=== PATIENT | female | born 1955 | race Caucasian/White ===

== ENCOUNTER 2025-05-18 14:38 | Outpatient (AMB) | payer MEDICARE, OTHER, SELFPAY ==
--- NOTE | 2025-05-18 14:41 | MHC.OFFVIS ---
Intake Visit Reasons: ULAR NEUROPATHY Allergies amoxicillin Allergy (Unknown, Verified 05/18/25 14:46) Unknown Medication List - Last Reconciled 05/18/25 by Donna Paige CNP apixaban (Eliquis) 5 mg PO BID cholecalciferol (vitamin D3) (Vitamin D3) 100 mcg PO DAILY diltiazem HCl CD 180 mg PO DAILY docusate sodium 100 mg PO BID estradiol 0.01%(0.1mg/gram) 1 g vaginal 3XW furosemide 20 mg PO DAILY gabapentin 800 mg PO TID magnesium oxide 400 mg PO DAILY metformin 500 mg PO BID mirabegron ER (Myrbetriq) 25 mg PO QPM montelukast 10 mg PO BEDTIME oxycodone ER (OxyContin) 20 mg PO Q12H prazosin 5 mg PO BEDTIME semaglutide (Ozempic) 2 mg subcut QWEEK sertraline 200 mg PO BEDTIME trazodone 50 mg PO BEDTIME trospium ER 60 mg PO DAILY HPI Comments Details: She was having constant pain to left 5th finger and first two fingers on right. Pain was burning or throbbing-type, and was worse if she was using her hands. She was still having painful sensitivity along left ulnar border of palm and 5th finger. She was taking gabapentin 800mg three times a day, but medication was not helping anymore. She was using wrist splint for right hand. Around 12/2023, she started with numbness in the fourth and fifth fingers, especially on the left hand with pain and some milder symptoms in the right side. She had been sleeping with her arm was under her and she now wears splints to avoid that. She has chronic pain because of ankle and knee pain. Also had right thumb pain in joint. Burning of palm is gone. [facility] Medical History (Updated 05/18/25 @ 15:07 by Donna Paige CNP) Right carpal tunnel syndrome Review of Systems Const Denies chills, Denies daytime sleepiness, Denies difficulty sleeping, Denies fatigue, Denies fever(s), Denies frequent falls, Denies headache(s), Denies increased appetite, Denies poor appetite, Denies snoring, Denies weakness, Denies weight gain and Denies weight loss Eyes Denies loss of vision ENT Denies vertigo, Denies dizziness, Denies headache(s) and Denies neck pain Card Denies chest pain at rest, Denies chest pain with activity, Denies syncope, Denies leg edema, Denies palpitations, Denies dyspnea and Denies dyspnea on exertion Resp Denies cough, Denies dyspnea, Denies dyspnea on exertion and Denies snoring GI Denies abdominal pain, Denies constipation, Denies heartburn, Denies diarrhea and Denies nausea Denies urinary frequency, Denies urinary incontinence and Denies urinary urgency Musc Denies abnormal gait, Denies back pain, Denies myalgias, Denies arthralgias, Denies neck pain, Denies numbness and Denies tingling Neuro Denies abnormal gait, Denies vertigo, Denies dizziness, Denies syncope, Denies frequent falls, Denies headache(s), Denies lack of coordination, Denies loss of vision, Denies memory loss, Denies numbness, Denies Other visual disturbances, Denies restless legs, Denies seizure-like activity, Denies tingling, Denies paresthesias, Denies tremor(s) and Denies weakness Psych Denies anxiety, Denies depression, Denies auditory hallucinations, Denies memory loss and Denies visual hallucinations Endo Denies fatigue and Denies palpitations Physical Exam Const Other: General Appearance:? normal, in no acute distress. Heart:? S1, S2 normal, no murmurs. Lungs:? clear anteriorly and posteriorly. Musculoskeletal:? normal. Extremities:? no edema. Psych:? alert, oriented, cognitive function intact, cooperative with exam. Neuro Other: Abnormal Neurological Findings:?Atrophy and weakness of ulnar innervated intrinsic hand muscles on the left 4+/5. Decreased sensation in ulnar nerve distribution on the left. In wheelchair. Mental Status: alert and oriented X 3. Normal attention, orientation, memory, and affect. Cranial Nerves: Pupils are equal, round, and reactive to light. External ocular muscles are intact. Visual maria are full, no ptosis. Face is symmetrical, no facial weakness or droop. Facial sensations are normal. Tongue protrudes in midline. Palate elevates symmetrically. Shoulder shrugging is normal Motor Examination: As above, otherwise normal muscle tone, bulk and strength. No atrophy or fasciculations. No drift of the extended upper extremities. DTR 2+. Plantars are flexor. Sensory Exam: As above, otherwise normal light touch, temperature, pinprick, vibration, and joint-position sensations. Rhomberg sign is absent. Coordination: No ataxia. No titubation. Ocqcaj-na-cean, [id number] test, and rapid alternating movements were normal. Gait Exam: Wheelchair. Cerebellar Signs: [id number] is okay. Extrapyramidal System: No tremor, rigidity with normal facial expressions. No bradykinesia. No bradyphrenia. Normal arm swing and posture. No propulsion or retropulsion. Speech: Normal. No dysphasia or dysarthria. Results Reviewed Results Reviewed: 08/11/24 NCV/EMG UE Early Carpal tunnel syndrome on the left and mild CTS on the right. Moderately severe compression palsy in the left ulnar nerve at the elbow. EMG in the left C5-T1 innervated muscles is consistent with moderate denervation in ulnar innervated muscle on the left. Assessment & Plan Assessment & Plan (1) Ulnar neuropathy: Code(s): G56.20 - Lesion of ulnar nerve, unspecified upper limb Category: Medical Qualifiers: Laterality: left Qualified Code(s): G56.22 - Lesion of ulnar nerve, left upper limb Plan: Gabapentin 800mg 1 tablet three times a day was not helping with pain, stop medication. Start pregabalin 150mg 1 tablet twice a day, use/side effects reviewed. (2) Carpal tunnel syndrome: Code(s): G56.00 - Carpal tunnel syndrome, unspecified upper limb Category: Medical Qualifiers: Laterality: bilateral Qualified Code(s): G56.03 - Carpal tunnel syndrome, bilateral upper limbs Plan Meds tried: gabapentin Medications: New pregabalin 150 mg PO BID 60 caps 1RF 30 days Coding Level of Care Code Est Pt Level 4 (34313) Diagnoses Ulnar neuropathy of left upper extremity G56.22 Laterality: left Bilateral carpal tunnel syndrome G56.03 Laterality: bilateral
--- OUTSIDE RECORDS SUMMARY | 2025-05-18 18:20 | XMS_ITS ---
Author Organization Patient Business Ser [facility] Address [address] [place] [address] Care Team Providers Care Embedded Software Programmer Name Role Phone Oscar Goyal MD Primary Care Provider [phone] Community Health Worker Program Status:Ongoing (Active) Start date:01/13/2025 Enrollment date:01/14/2025 Enrollment reason:Referred by Care Team Related service episodes:[facility] - Transportation (Active) Overview Community Health Worker Program Case Team Name Relationship Phone Ivonne Cifuentes Community Health Worker(Responsi ble Staff) Continued Care and Services Coordination
--- OUTSIDE RECORDS SUMMARY | 2025-05-18 18:20 | XMS_ITS ---
Author Organization Patient Business Ser [facility] Address [address] [place] [address] Care Team Providers Care Ground Worker Name Role Phone Oscar Goyal MD Primary Care Provider [phone] [facility] - Transportation Status:Ongoing (Active) Start date:09/11/2024 Enrollment date:09/11/2024 Enrollment reason:Referred by Care Team Related social drivers of health:Transportation Related program episode:Community Health Worker Program (Closed) Overview Community Health Worker Program - Transportation Service Episode Case Team Name Relationship Phone Justyna Sykes Community Health Worker(Responsi ble Staff) Continued Care and Services Coordination
--- OUTSIDE RECORDS SUMMARY | 2025-05-18 18:20 | XMS_ITS | Clinical Summary ---
Author Organization Patient Business Ser [facility] Address [address] [place] [address] Care Team Providers Care Cushion Stuffer Name Role Phone Oscar Goyal MD Primary Care Provider [phone] Allergies Active Allergy Reactions Criticality Noted Date Comments Amoxicillin Trihydrate Swelling 12/31/2005 Glipizide Other 04/05/2023 pt c/o sweating profusely,feeling shaky,headache Lisinopril 10/29/2011 Cough Medications estradioL (ESTRACE) 0.01 % (0.1 mg/gram) vaginal cream Place 1 g vaginally three times a week. Active sertraline (ZOLOFT) 100 mg tablet Take 2 tablets (200 mg total) by mouth at bedtime. Active traZODone (DESYREL) 50 mg tablet Take 1 tablet (50 mg total) by mouth at bedtime. Active fluticasone propionate (FLONASE) 50 mcg/actuation nasal spray Administer 1 spray into each nostril 1 (one) time each day. Shake gently. Before first use, prime pump. After use, clean tip and replace cap. 16 g 11 08/27/20 24 025 Active atorvastatin (LIPITOR) 20 mg tabletIndications :Pure hypercholesterole deidre, unspecified Take 1 tablet (20 mg total) by mouth 1 (one) time each day. 90 tablet 1 10/02/19 25 Active albuterol-budeson wyatt (Airsupra) 90-80 mcg/actuation inhaler Inhale 2 puffs by mouth 2 (two) times a day. Rinse mouth with water after use to reduce aftertaste and incidence of candidiasis. Do not swallow. 1 each 2 11/03/19 25 Active albuterol HFA (PROAIR HFA ; PROVENTIL HFA ; VENTOLIN HFA) 90 mcg/actuation inhaler INHALE 2 PUFFS FOUR TIMES A DAY NEEDED FOR COUGH OR WHEEZING (BULK) 18 g 1 11/26/19 25 Active metFORMIN (GLUCOPHAGE) 1,000 mg tabletIndications :Type 2 diabetes mellitus with chronic kidney disease, without long-term current use of insulin, unspecified CKD stage (CMS/[facility] V24, CMS/[facility] V28) Take 0.5 tablets (500 mg total) by mouth 2 (two) times a day with meals. 90 each 1 02/04/20 25 025 Active apixaban (Eliquis) 5 mg tabletIndications :Unspecified atrial fibrillation (CMS/[facility] V24, [facility] V28) Take 1 tablet (5 mg total) by mouth 2 (two) times a day. 180 tablet 1 02/09/20 25 Active dilTIAZem CD (CARDIZEM CD) 180 mg 24 hr capsule Take 1 capsule (180 mg total) by mouth 1 (one) time each day. 30 each 03/09/20 25 Active gabapentin (NEURONTIN) 300 mg capsule Take 2 capsules (600 mg total) by mouth every 8 (eight) hours. 180 each 03/08/20 25 Active furosemide (LASIX) 20 mg tablet Take 1 tablet (20 mg total) by mouth 1 (one) time each day. 30 each 3 03/16/20 25 025 Active Myrbetriq 25 mg 24 hr tablet Take 1 tablet (25 mg total) by mouth 1 (one) time each day. 03/13/20 25 Active LORazepam (ATIVAN) 1 mg tablet Take 0.5 tablets (0.5 mg total) by mouth every 8 (eight) hours if needed. Max Daily Amount: 1.5 mg Active semaglutide (OZEMPIC) 2 mg/dose (8 mg/3 mL) injection pen Inject 2 mg under the skin every 7 (seven) days. 3 mL 3 03/17/20 25 Active montelukast (SINGULAIR) 10 mg tabletIndications :Mild intermittent asthma, uncomplicated Take 1 tablet (10 mg total) by mouth at bedtime. 90 tablet 1 05/04/20 25 Active oxyCODONE (OxyCONTIN) 20 mg 12 hr abuse-deterrent tabletIndications :severe chronic pain requiring long-term opioid treatment Take 1 tablet (20 mg total) by mouth every 12 (twelve) hours. Do not crush, chew, or split. Max Daily Amount: 40 mg 56 tablet 05/11/20 25 025 Active montelukast (SINGULAIR) 10 mg tabletIndications :Mild intermittent asthma, uncomplicated Take 1 tablet (10 mg total) by mouth at bedtime. 90 tablet 1 10/02/19 25 025 Discontin ued(Reord er) oxyCODONE (OxyCONTIN) 20 mg 12 hr abuse-deterrent tabletIndications :severe chronic pain requiring long-term opioid treatment Take 1 tablet (20 mg total) by mouth every 12 (twelve) hours. Do not crush, chew, or split. Max Daily Amount: 40 mg 56 tablet 04/13/20 25 025 Discontin ued(Reord er) Active Problems Problem Noted Date Diagnosed Date Atrial fibrillation ([facility]/HCC V24, CMS/HCC V28) 0 02/25/2025 Atrial fibrillation with rap id ventricular response (CMS/HCC V24, CMS/HCC V28) 02/22/2025 Chronic atrial fibrillation (CMS/HCC V24, CMS/ C V28) 07/24/2024 Microalbuminuria 06/12/2024 Diastolic heart failure (CMS/HCC V24, CMS/HCC V2 8) 06/02/2021 Overview (06/12/2024): Last Assessment & Plan: Appears euvolemic, she is feeling well she has no heart failure or ischemic symptoms. She has chronic mild dyspnea which has not worsened or changed. Reviewed signs and symptoms of heart failure and educated regarding monitoring weight, diet, and fluid intake. If there is a weight gain of 3 pounds in one day or 5 pounds in a week please call our office or seek medical attention if necessary. Adnexal cyst 03/17/2020 Elevated alkaline phosphatase level 01/12/2020 Fatty liver 01/12/2020 Polyp, cervix 05/13/2019 B12 deficiency 10/26/2016 Permanent atrial fibrillation (CMS/HCC V24, CMS/ HCC V28) 10/09/2015 Overview (06/12/2024): Failed to complete ECHO and HOLTER ordered by cardiology in JUN 2019 Last Assessment & Plan: Heart rate is elevated, 120-130 A. fib with RVR. She is asymptomatic with her A. fib, she has been difficult to rate control in the past. She has not been evaluated in our office in a while, she states she canceled these due to Covid. We will increase her diltiazem to 240 mg daily. She will come back for an EKG in the next 1-1/2-2 weeks to reassess her rate. We will make further adjustments if needed. Anticoagulated on Eliquis. She understands risks and benefits of anticoagulation and wished to continue. Anxiety 12/15/2013 Overview (06/12/2024): Felix transferred to [facility] - who patient NO-SHOWED on 12/31/19 and did not reschedule PSVT (paroxysmal supraventri cular tachycardia) ([facility] V24) 12/10/2012 Overview (06/12/2024): Cardio note 04/02/2012 Dr. Tay Type II diabetes mellitus wi th renal manifestations ([facility] V24, [facility] V28) 12/10/2012 ROMEO (obstructive sleep apnea) 10/23/2012 Overview (06/12/2024): NOT TREATED (DECEMBER 2019) Hypercholesteremia 01/05/2011 Overview (06/12/2024): Last Assessment & Plan: Panel 04/22 total cholesterol 142, HDL 33, LDL 67. Continue statin. Chronic sinusitis 01/11/2010 Left ankle pain 05/27/2009 Overview (06/12/2024): XR 05/11 - deformity of the distal tib fib and calcification in the interosseous membrane consistent with previous fxs. Severe degenerative changes Degenerative arthritis of cervical spine 008 Allergic rhinitis 12/31/2005 Asthma 12/31/2005 Hypertension 12/31/2005 Overview (06/12/2024): Last Assessment & Plan: Controlled, increasing diltiazem as below. Urinary incontinence 12/31/2005 Encounters Date Type Department Care Team Description 04/09/2025 Billing Patient Not Present [facility] [place] [address] [facility] [place] [place] [phone] Oscar Goyal MD Atrial fibrillation, unspecified type ([facility] V24, [facility] V28) (Primary Dx); Type 2 diabetes mellitus with diabetic polyneuropathy, unspecified whether mcc insulin use ([facility] V24, [facility] V28); Other thrombophilia ([facility] V24); Morbid (severe) obesity due to excess calories ([facility] V24, [facility] V28); Body mass index (BMI) 45.0-49.9, adult ([facility] V24, [facility] V28); Anxiety disorder, unspecified type; Uncomplicated asthma, unspecified asthma severity, unspecified whether persistent; Hyperlipidemia, unspecified hyperlipidemia type 04/08/2025 Telephone Internal Medicine - [place] [address] [facility] [place] [place] [phone] Oscar Goyal MD 04/08/2025 Telephone [facility] - [facility] [address] [facility] [address] [place] [address] Brandan Rodriguez MD 04/06/2025 Telephone Internal Medicine - [place] [address] [place], [place] [address] [phone] Oscar Goyal MD 04/02/2025 Telephone Internal Medicine - [place] [address] [place], [place] [address] [phone] Oscar Goyal MD 04/01/2025 Telephone Internal [facility] - [place] [address] [place] [address] [phone] Oscar Goyal MD 04/01/2025 Telephone Internal Medicine - [place] [address] [place], [place] [address], [place] [phone] Oscar Goyal MD 04/01/2025 Telephone Internal Medicine - [place] [address] [place] [phone] Oscar Goyal MD 03/17/2025 Telephone Internal Medicine - [place] [address] [facility] [place] [address] Oscar Goyal MD 03/16/2025 1:30 PM EDT Office Visit Internal Medicine - [place] [address] [place], [place] [phone] Oscar Goyal MD Hospital discharge follow-up (Primary Dx); Type 2 diabetes mellitus with chronic kidney disease, without long-term current use of insulin, unspecified CKD stage (CMS/HCC V24, CMS/HCC V28); Persistent atrial fibrillation (CMS/HCC V24, CMS/HCC V28); Primary hypertension; Chronic pain of both knees 03/15/2025 Telephone [facility] [address] [place] [phone] Ivonne Cifuentes 03/11/2025 Telephone [facility] [address] [place], [place] [address] [phone] Oscar Goyal MD 03/08/2025 Telephone [facility] - [facility] [address] [facility] [address] [place] [address] Brandan Rodriguez MD 03/08/2025 Plan of Care Documentation [facility] [address] [place] [address] 03/03/2025 Telephone [facility] [address] [place] [address] Oscar Goyal MD 03/01/2025 Plan of Care Documentation [facility] [address] [place] [address] 02/26/2025 Telephone [facility] [address] [place] [address] Ivonne Cifuentes 02/25/2025 4:51 PM EDT - 03/09/2025 12:30 PM EDT Hospital Encounter [facility] [address] [place] [address] Lanny Scott, Discharge Disposition: Home-Health Care Svc 02/22/2025 2:36 PM EDT - 02/25/2025 4:45 PM EDT Hospital Encounter [facility] [address] [place] [address] Gold Odom MD Santoyo-Pacheco, Omar D, MD Kela, Kashyap Devendrabhai, MD Atrial fibrillation with rapid ventricular response (CMS/HCC V24, CMS/HCC V28) (Primary Dx); SOB (shortness of breath); Hypoxia; Nausea and vomiting, unspecified vomiting type Discharge Disposition: Retirement Facility from Last 3 Months Immunizations Name Administration Dates Next Due Influenza Quadravalent, MDCK , 0.5ml, preservative free (Flucelvax) 6mo and older 06/10/2018 Influenza trivalent, 0.5mL ( Fluzone High-dose) 65yo and older 06/30/2021,06/06/2015,07/16/2014,07/09,07/16/2012,05/24/2009 Influenza trivalent, with pr eservative (Fluzone; Afluria) 6mo and older 06/12/2007 [employer] SARS-CoV-2 COVID -19, vector-nr, rS-Ad26, preservative free 04/02/2021,01/03/2021 Pneumococcal polysaccharide 23 valent (Pneumovax 23) 2yo and older 12/22/2013 Tdap Tetanus diptheria acell ular pertussis (Boostrix; Adacel) 7yo and older 07/16/2012 Surgical History Surgery Date Site/Laterality Comments OTHER SURGICAL HISTORY 07/03/2004 PROCEDURE: MAMMOGRAM UPPER GASTROINTESTINAL ENDOSCOPY 09/04/2016 PROCEDURE: OH UPPER GI ENDOSCOPY PERFORMED; COMMENT: Muslu@[facility]; gastric erythema without erosive gastritis; biopsies negative for H. pylori. Distal esophageal rings, dilated but not biopsied. OTHER SURGICAL HISTORY 09/04/2016 PROCEDURE: OH DILATION ESOPHAGUS GUIDE WIRE; COMMENT: Lisa@[facility]; 20 Kinyarwanda Savary dilator ANKLE FRACTURE SURGERY Left PROCEDURE: OH OPEN TREATMENT MEDIAL MALLEOLUS FRACTURE Medical History Medical History Date Comments Unspecified asthma(493.90) 12/31/2005 DX:Un specified asthma(493.90) Allergic rhinitis, cause unspecified 12/31/2005 DX:Allergic rhinitis, cause unspecified Essential hypertension, benign 12/31/2005 D X:Essential hypertension, benign Unspecified urinary incontinence 12/31/2005 DX:Unspecified urinary incontinence Hypercholesteremia 01/05/2011 DX:Hyperchole steremia Type II or unspecified type diabetes mellitus with unspecified complication, not stated as uncontrolled DX:Type II or unspecified t ype diabetes mellitus with unspecified complication, not stated as uncontrolled History of pulmonary embolism DX :History of pulmonary embolism Elevated ferritin DX:Elevated fe rritin B12 deficiency DX:B12 deficienc y Gallstone DX:Gallstone; CO MMENT: 25 mm Microalbuminuria DX:Microalbumin uria Atrial fibrillation (CMS/HCC V24, CMS/HCC V28) DX:Atrial fibrillation (HCC) Supraventricular tachycardia (CMS/HCC V24) DX:Supraventricular tachycar caryl (HCC) Family History Medical History Relation Name Comments Other: Other Brother x2 many health pro blems Coronary artery disease Father Heart attack Father Blindness Mother Diabetes Mother Macular degeneration Mother Stroke Mother Cataracts Uncle Relation Name Status Comments Brother x2 Father (Age 75) AMI x 4; C AD Mother (Age 80) CVA at 72, given TPA Uncle Social History Tobacco Use Types Packs/Day Years Used Date Smoking Tobacco: Former Smokeless Tobacco: Never Alcohol Use Standard Drinks/Week Comments No 0 (1 standard drink = 0.6 oz pur e alcohol) Housing Instability Answer Date Recorde d Are you worried that in the next 2 months you may not have stable housing? No 01/27/2025 Food Access & Nutrition Answer Date Rec orded Do you have access to a vari ety of food including fruits and vegetables? Yes 01/27/2025 Access to Healthcare Answer Date Record ed Within the last 3 months, ho w many times did you visit the emergency department for your medical care? 0 01/27/2025 Health Literacy Answer Date Recorded How often do you need to hav e someone help you when you read instructions, pamphlets, or other written material from your doctor or pharmacy? Never 03/08/2025 Caregiver: How often do you need to have someone help you when you read instructions, pamphlets, or other written material from your doctor or pharmacy? Not on file 03/08/2025 Financial Risk Answer Date Recorded How hard is it for you to pa y for the very basics like food, housing, medical care, and air conditioning / heating? Not very hard 01/27/2025 Transportation Answer Date Recorded Has the lack of transportati on kept you from meetings, work, or from getting things needed for daily living? Yes Has the lack of transportati on kept you from medical appointments or from getting medications? Yes 02/26/2025 Social Isolation Answer Date Recorded How often do you feel lonely or isolated from th ose around you? Rarely 03/08/2025 Food Risk Answer Date Recorded Within the past 12 months we worried whether our food would run out before we got money to buy more. Never true 03/04/2025 Within the past 12 months th e food we bought just didn't last and we didn't have money to get more. Never true 03/04/2025 Dependent Care Answer Date Recorded Do you need help finding or paying for care for your loved ones. For example, early childhood education coordinator or elderly care for an older adult? No 01/27/2025 Education Answer Date Recorded Do you think completing more education or training, like finishing a GED, going to college, or learning a trade, would be helpful for you? N/A 01/27/2025 Employment and Income Answer Date Recor ded During the last four weeks, have you been actively looking for work? No 01/27/2025 Living Situation Answer Date Recorded What is your living situation? 0 01/27/2025 Comments No Sex and Gender Information Value Date Recorded Sex Assigned at Female 02/25/2025 11:18 AM EDT Legal Sex Female 3:19 PM EDT Gender Identity Female 02/25/2025 11:18 AM EDT Sexual Orientation Straight 02/25/2025 11 :18 AM EDT Obstetrics History Last Filed Vital Signs Vital Sign Reading Time Taken Comments Blood Pressure 114/93 03/16/2025 1:02 PM EDT Pulse 115 03/16/2025 1:02 PM EDT Temperature 36.4 C (97.6 F) 03/09/2025 8:08 AM EDT Respiratory Rate 16 03/09/2025 8:08 AM EDT Oxygen Saturation 95% 03/09/2025 1:17 AM EDT Inhaled Oxygen Concentration - - Weight 147 kg (324 lb 12.8 oz) 03/06/2025 8:00 A M EDT Height 179.8 cm (5' 10.8 ) 02/22/2025 3:17 PM ED T Body Mass Index 45.56 02/22/2025 3:17 PM EDT Plan of Treatment Upcoming Encounters Date Type Department Care Team (Late st Contact Info) Description 05/21/2025 2:00 PM EDT Office Visit [facility] - [facility] [address] [facility] [address] [place] [address] Brandan Rodriguez MD [address] [place] [address] [address] [place] [address] 05/24/2025 2:00 PM EDT Office Visit Pulmonolgy - [place] [address] [facility] [address] [place] [phone] Hua Sal MD 175 [facility] [address] [place] [address] 06/16/2025 1:15 PM EDT Office Visit Internal Medicine - [facility] [address] [place] [address] Oscar Goyal MD [address] [place] [address] 07/22/2025 1:00 PM EST Office Visit Orthopedic Surgery - [place] [address] [facility] [address] [place] [phone] Gold Hernandez DPM [address] [phone] Health Maintenance Due Date Last Done Comments Breast Cancer Screening 1955 Diabetes: Annual Foot Exam 1964 Hepatitis A Vaccines (1 of 2 - Risk 2-dose series) 1973 Zoster Vaccines (1 of 2) 1973 RSV Immunization Adult Patients (1 - Risk 60-74 years 1-dose series) 2014 Pneumococcal Vaccine: 50+ Years (2 of 2 - PCV) 12/22/2014 12/22/2013 Colorectal Cancer Screening: Stool Based Tests (FOBT/FIT) 03/24/2021 Medicare Annual Wellness Visit 03/24/2021 Osteoporosis Screening (Bone Density Screening) 03/24/2021 DTaP,Tdap,and Td Vaccines (2 - Td or Tdap) 07/16/2022 07/16/2012 COVID-19 Vaccine ( - season) 2025 08/03/2021, 04/02/2021, 01/03/2021 Influenza Vaccine (#1) 2025 , 06/10/2018, 06/06/2015, Additional history exists Diabetes: Blood Sugar Control Test (HGBA1C) 08/05/2025 02/03/2025, 10/04/2023, 03/28/2023, Additional history exists Diabetes: Annual Retina Eye Exam 01/13/2026 01/13/2025 Diabetes: Annual Urine Albumin-Creatinine Ratio (uACR) 02/03/2026 02/03/2025, 08/30/2022 Diabetes: Annual GFR (Glomerular Filtration Rate) 03/08/2026 03/08/2025, 03/04/2025, 02/27/2025, Additional history exists Hypertension/CHF/CAD Annual BMP Blood Test 03/08/2026 03/08/2025, 03/04/2025, 02/27/2025, Additional history exists Social Influencers of Health Screening 03/08/2026 03/08/2025 Falls Risk Assessment 03/09/2026 03/09/2025 Cholesterol Screening (Lipid Panel) 02/03/2030 02/03/2025, 03/28/2023, 08/30/2022 Hepatitis C Screening Completed 12/30/2012 Depression Screening Completed 03/08/2025, 09/16/19 24 HIB Vaccines Aged Out No longer eligi ble based on patient's age to complete this topic HPV Vaccines Aged Out No longer eligi ble based on patient's age to complete this topic Hepatitis B Vaccines Aged Out No long er eligible based on patient's age to complete this topic IPV Vaccines Aged Out No longer eligi ble based on patient's age to complete this topic MMR Vaccines Aged Out No longer eligi ble based on patient's age to complete this topic Meningococcal ACWY Vaccine Aged Out N o longer eligible based on patient's age to complete this topic Meningococcal B Vaccine Aged Out No l onger eligible based on patient's age to complete this topic RSV Immunization Patients Under 20 months Aged Out No longer eligible based on patient's age to complete this topic Varicella Vaccines Aged Out No longer eligible based on patient's age to complete this topic Procedures Procedure Name Priority Date/Time Associated Diagnosis Comments HOME HEALTH ORDER 04/29/2025 HOME HEALTH ORDER 04/15/2025 POCT GLUCOSE BLOOD Routine 03/09/2025 7: 28 AM EDT POCT GLUCOSE BLOOD Routine 03/08/2025 3: 54 PM EDT POCT GLUCOSE BLOOD Routine 03/08/2025 8: 19 AM EDT OXYGEN THERAPY, ADULT Routine 03/08/2025 8:02 AM EDT MAGNESIUM Routine 03/08/2025 6:00 AM EDT BASIC METABOLIC PANEL Routine 03/08/2025 6:00 AM EDT COMPLETE BLOOD COUNT Routine 03/08/2025 6:00 AM EDT POCT GLUCOSE BLOOD Routine 03/07/2025 3: 54 PM EDT OXYGEN THERAPY, ADULT Routine 03/07/2025 8:00 AM EDT POCT GLUCOSE BLOOD Routine 03/07/2025 7: 31 AM EDT OXYGEN THERAPY, ADULT Routine 03/06/2025 8:00 PM EDT POCT GLUCOSE BLOOD Routine 03/06/2025 3: 56 PM EDT OXYGEN THERAPY, ADULT Routine 03/06/2025 8:00 AM EDT POCT GLUCOSE BLOOD Routine 03/06/2025 7: 18 AM EDT OXYGEN THERAPY, ADULT Routine 03/05/2025 8:00 PM EDT POCT GLUCOSE BLOOD Routine 03/05/2025 3: 59 PM EDT OXYGEN THERAPY, ADULT Routine 03/05/2025 8:00 AM EDT POCT GLUCOSE BLOOD Routine 03/05/2025 7: 23 AM EDT OXYGEN THERAPY, ADULT Routine 03/04/2025 8:00 PM EDT POCT GLUCOSE BLOOD Routine 03/04/2025 4: 22 PM EDT OXYGEN THERAPY, ADULT Routine 03/04/2025 8:02 AM EDT POCT GLUCOSE BLOOD Routine 03/04/2025 7: 42 AM EDT COMPLETE BLOOD COUNT Routine 03/04/2025 5:56 AM EDT COMPREHENSIVE METABOLIC PANEL Routine 03/04/2025 5:56 AM EDT OXYGEN THERAPY, ADULT Routine 03/03/2025 8:00 PM EDT POCT GLUCOSE BLOOD Routine 03/03/2025 4: 31 PM EDT OXYGEN THERAPY, ADULT Routine 03/03/2025 8:02 AM EDT POCT GLUCOSE BLOOD Routine 03/03/2025 7: 34 AM EDT OXYGEN THERAPY, ADULT Routine 03/02/2025 8:00 PM EDT POCT GLUCOSE BLOOD Routine 03/02/2025 4: 29 PM EDT OXYGEN THERAPY, ADULT Routine 03/02/2025 8:02 AM EDT POCT GLUCOSE BLOOD Routine 03/02/2025 7: 20 AM EDT OXYGEN THERAPY, ADULT Routine 03/01/2025 8:00 PM EDT POCT GLUCOSE BLOOD Routine 03/01/2025 4: 11 PM EDT OXYGEN THERAPY, ADULT Routine 03/01/2025 8:02 AM EDT POCT GLUCOSE BLOOD Routine 03/01/2025 7: 23 AM EDT OXYGEN THERAPY, ADULT Routine 02/28/2025 8:01 PM EDT POCT GLUCOSE BLOOD Routine 02/28/2025 4: 28 PM EDT OXYGEN THERAPY, ADULT Routine 02/28/2025 8:01 AM EDT POCT GLUCOSE BLOOD Routine 02/28/2025 7: 52 AM EDT POCT GLUCOSE BLOOD Routine 02/27/2025 10 :02 PM EDT OXYGEN THERAPY, ADULT Routine 02/27/2025 8:00 PM EDT POCT GLUCOSE BLOOD Routine 02/27/2025 4: 33 PM EDT POCT GLUCOSE BLOOD Routine 02/27/2025 11 :14 AM EDT OXYGEN THERAPY, ADULT Routine 02/27/2025 8:01 AM EDT POCT GLUCOSE BLOOD Routine 02/27/2025 7: 13 AM EDT VITAMIN D 25 HYDROXY Routine 02/27/2025 5:35 AM EDT MAGNESIUM Routine 02/27/2025 5:35 AM EDT BASIC METABOLIC PANEL Routine 02/27/2025 5:35 AM EDT COMPLETE BLOOD COUNT Routine 02/27/2025 5:35 AM EDT ECG ANNOTATED 02/27/2025 OXYGEN THERAPY, ADULT Routine 02/26/2025 8:01 PM EDT POCT GLUCOSE BLOOD Routine 02/26/2025 7: 56 PM EDT POCT GLUCOSE BLOOD Routine 02/26/2025 3: 56 PM EDT LAVENDER - EDTA Routine 02/26/2025 12:13 PM EDT EXTRA TUBES Routine 02/26/2025 12:13 PM EDT THYROID STIMULATING HORMONE WITH REFLEX TO FREE T4 AND FREE T3 Routine 02/26/2025 12:13 PM EDT POCT GLUCOSE BLOOD Routine 02/26/2025 11 :19 AM EDT POCT GLUCOSE BLOOD Routine 02/26/2025 7: 31 AM EDT CBC WITH AUTO DIFFERENTIAL Routine 02/26/2025 6:07 AM EDT COMPREHENSIVE METABOLIC PANEL Routine 02/26/2025 6:07 AM EDT CBC AND DIFFERENTIAL Routine 02/26/2025 6:07 AM EDT POCT GLUCOSE BLOOD Routine 02/25/2025 9: 01 PM EDT OXYGEN THERAPY, ADULT Routine 02/25/2025 8:21 PM EDT OXYGEN THERAPY, ADULT Routine 02/25/2025 8:21 PM EDT OXYGEN THERAPY, ADULT Routine 02/25/2025 8:21 PM EDT POCT GLUCOSE BLOOD Routine 02/25/2025 11 :55 AM EDT POCT GLUCOSE BLOOD Routine 02/25/2025 8: 07 AM EDT MAGNESIUM Routine 02/25/2025 5:42 AM EDT BASIC METABOLIC PANEL Routine 02/25/2025 5:42 AM EDT COMPLETE BLOOD COUNT Routine 02/25/2025 5:42 AM EDT PHOSPHORUS Routine 02/25/2025 5:42 AM EDT POCT GLUCOSE BLOOD Routine 02/24/2025 8: 06 PM EDT POCT GLUCOSE BLOOD Routine 02/24/2025 4: 29 PM EDT POCT GLUCOSE BLOOD Routine 02/24/2025 11 :42 AM EDT MAGNESIUM Routine 02/24/2025 5:34 AM EDT BASIC METABOLIC PANEL Routine 02/24/2025 5:34 AM EDT COMPLETE BLOOD COUNT Routine 02/24/2025 5:34 AM EDT PHOSPHORUS Routine 02/24/2025 5:34 AM EDT POCT GLUCOSE BLOOD Routine 02/23/2025 9: 07 PM EDT POCT GLUCOSE BLOOD Routine 02/23/2025 3: 56 PM EDT POCT GLUCOSE BLOOD Routine 02/23/2025 11 :56 AM EDT CBC WITH AUTO DIFFERENTIAL Routine 02/23/2025 11:50 AM EDT CBC AND DIFFERENTIAL Routine 02/23/2025 11:50 AM EDT BASIC METABOLIC PANEL Routine 02/23/2025 11:50 AM EDT POCT GLUCOSE BLOOD Routine 02/23/2025 8: 44 AM EDT MCDANIEL URINE CULTURE TUBE STAT 02/23/2025 3:46 AM EDT URINALYSIS WITH REFLEX MICROSCOPIC AND CULTURE STAT 02/23/2025 3:46 AM EDT URINALYSIS WITH REFLEX MICROSCOPIC AND CULTURE STAT 02/23/2025 3:46 AM EDT CULTURE URINE STAT 02/23/2025 3:46 AM EDT POCT GLUCOSE BLOOD Routine 02/22/2025 9: [address] ANGIO CHEST WO AND/OR W CONTRAST STAT 02/22/2025 5:45 PM EDT SOB (shortness of breath) CT ABDOMEN PELVIS W CONTRAST STAT 02/22/2025 5:[address] CERVICAL SPINE WO CONTRAST STAT 02/22/2025 5:[address] HEAD WO CONTRAST STAT 02/22/2025 5 :45 PM EDT TROPONIN I HIGH SENSITIVITY STAT 02/22/2025 4:47 PM EDT XR CHEST 1 VIEW STAT 02/22/2025 3:44 PM EDT TROPONIN I HIGH SENSITIVITY STAT 02/22/2025 3:33 PM EDT ACTIVATED PARTIAL THROMBOPLASTIN TIME STAT 02/22/2025 3:26 PM EDT PROTHROMBIN TIME WITH INR STAT 02/22/2025 3:26 PM EDT B-TYPE NATRIURETIC PEPTIDE STAT 02/22/2025 3:26 PM EDT COMPREHENSIVE METABOLIC PANEL STAT 02/22/2025 3:26 PM EDT CBC WITH AUTO DIFFERENTIAL STAT 02/22/2025 3:26 PM EDT MAGNESIUM STAT 02/22/2025 3:26 PM EDT CBC AND DIFFERENTIAL STAT 02/22/2025 3:26 PM EDT RESPIRATORY VIRUS PANEL MOLECULAR STUDY STAT 02/22/2025 3:25 PM EDT ECG 12-LEAD STAT 02/22/2025 3:07 PM EDT MICROALBUMIN CREATININE URINE RATIO Routine 02/03/2025 3:57 PM EDT Type 2 diabetes mellitus with chronic kidney disease, without long-term current use of insulin, unspecified CKD stage ([facility] V24, [facility] V28) HEMOGLOBIN A1C Routine 02/03/2025 3:57 PM EDT Type 2 diabetes mellitus with chronic kidney disease, without long-term current use of insulin, unspecified CKD stage ([facility] V24, [facility] V28) LIPID PANEL WITH REFLEX TO DIRECT LDL Routine 02/03/2025 3:57 PM EDT Hypercholesteremia EXTERNAL DIABETIC RETINA EYE EXAM 01/13/2025 DEPRESSION SCREENING Routine 09/16/2023 HEPATITIS C SCREENING Routine 12/30/2012 from Last 3 Months or Most Recently Relevant to Health Maintenance Results * Home Health Order (04/29/2025) Only the most recent of2 resultswithin the time period is included. us Provider [facility] Amelia fidelia Result * (ABNORMAL) POCT Glucose, blood (03/09/2025 7:28 AM EDT) Only the most recent of38 resultswithin the time period is included. [facility] Signature Glucose POCT 128(H) 70 - 100 mg/dL 03/09/2025 7:29 AM EDT [facility] Blood Capillary blood specimen / Unknown 03/09/2025 7:28 AM EDT 03/09/2025 7:30 AM EDT Lanny Scott DO LAB POINT OF CARE TEST DOCKED DEVICE UNSOLICITED RESULTS Final Result [facility] [address] [place] [address], [place] [phone] * (ABNORMAL) Complete blood count (03/08/2025 6:00 AM EDT) Only the most recent of5 resultswithin the time period is included. [facility] Signature WBC 6.9 4.8 - 10.8 K/mcL LAB HEMETOLOGY METHOD 03/08/2025 6:58 AM [facility] RBC 4.00 3.80 - 4.80 M/mcL LAB HEMETOLOGY METHOD 03/08/2025 6:[facility] Hemoglobin 11.1(L) 11.5 - 16.0 g/dL LAB HEMETOLOGY METHOD 03/08/2025 6:58 AM [facility] Hematocrit 36.9 35.0 - 47.0 % LAB HEMETOLOGY METHOD 03/08/2025 6:58 AM [facility] MCV 91.3 79.0 - 98.0 FL LAB HEMETOLOGY METHOD 03/08/2025 6:58 AM [facility] MCH 27.5 27.0 - 32.0 pcg LAB HEMETOLOGY METHOD 03/08/2025 6:58 AM [facility] MCHC 30.1(L) 32.0 - 37.0 g/dL LAB HEMETOLOGY METHOD 03/08/2025 6:58 AM [facility] RDW 13.7 11.0 - 15.0 % LAB HEMETOLOGY METHOD 03/08/2025 6:58 AM [facility] Platelets 222 130 - 400 K/mcL LAB HEMETOLOGY METHOD 03/08/2025 6:58 AM [facility] MPV 10.4 7.0 - 11.0 FL LAB HEMETOLOGY METHOD 03/08/2025 6:58 AM [facility] NRBC 0.0 <1.0 % LAB HEMETOLOGY METHOD 03/08/2025 6:58 AM [facility] NRBC Absolute 0.00 <0.10 K/mcL LAB HEMETOLOGY METHOD 03/08/2025 6:58 AM EDT [facility] Blood Venous blood specimen / Unknown Venipuncture / Unknown 03/08/2025 6:00 AM EDT 03/08/2025 6:36 AM EDT [facility] LAB BLOOD ORDERABLES Final Result Performing Organization Address [facility] Co de Phone Number [facility] [address] [place] [address], [place] [phone] * Magnesium (03/08/2025 6:00 AM EDT) Only the most recent of5 resultswithin the time period is included. Magnesium 1.9 1.9 - 2.6 mg/dL LAB CHEMISTRY METHOD 03/08/2025 7:36 AM EDT [facility] Blood Venous blood specimen / Unknown Venipuncture / Unknown 03/08/2025 6:00 AM EDT 03/08/2025 6:35 AM EDT [facility] DennisTomasz YOUNGER LAB BLOOD ORDERABLES Final Result Performing Organization Address [facility] de Phone Number [facility] [address] [place] [address], [place] [phone] * (ABNORMAL) Basic metabolic panel (03/08/2025 6:00 AM EDT) Only the most recent of5 resultswithin the time period is included. Sodium 141 133 - 145 mmol/L LAB CHEMISTRY METHOD 03/08/2025 7:36 AM EDT [facility] Potassium 4.2 3.5 - 5.5 mmol/L LAB CHEMISTRY METHOD 03/08/2025 7:36 AM EDT [facility] Chloride 107 96 - 110 mmol/L LAB CHEMISTRY METHOD 03/08/2025 7:36 AM T [facility] CO2 31 21 - 32 mmol/L LAB CHEMISTRY METHOD 03/08/2025 7:36 AM [facility] Anion Gap 3 3 - 11 LAB CHEMISTRY METHOD 03/08/2025 7:36 AM [facility] Glucose 139(H) 70 - 100 mg/dL LAB CHEMISTRY METHOD 03/08/2025 7:36 AM [facility] BUN 12 5 - 25 mg/dL LAB CHEMISTRY METHOD 03/08/2025 7:36 AM [facility] Creatinine 0.83 0.50 - 1.10 mg/dL LAB CHEMISTRY METHOD 03/08/2025 7:36 AM [facility] eGFR 76 >=60 mL/min/1. 73m2 LAB CHEMISTRY METHOD 03/08/2025 7:36 AM [facility] Comment:Calculation based on the Chronic Kidney Disease Epidemiology Collaboration (CKD-EPI) equation refit without adjustment for race. BUN/Creatinine Ratio 14.5 LAB CHEMISTRY METHOD 03/08/2025 7:36 AM [facility] Calcium 9.1 8.5 - 10.5 mg/dL LAB CHEMISTRY METHOD 03/08/2025 7:36 AM [facility] Blood Venous blood specimen / Unknown Venipuncture / Unknown 03/08/2025 6:00 AM EDT 03/08/2025 6:35 AM EDT Nataliya Jones NP LAB BLOOD ORDERABLES Final Result [facility] [address] [place] [address], * (ABNORMAL) Comprehensive metabolic panel (03/04/2025 5:56 AM EDT) Only the most recent of3 resultswithin the time period is included. Sodium 144 133 - 145 mmol/L LAB CHEMISTRY METHOD 03/04/2025 8:52 AM [facility] Potassium 4.1 3.5 - 5.5 mmol/L LAB CHEMISTRY METHOD 03/04/2025 8:52 AM [facility] Chloride 110 96 - 110 mmol/L LAB CHEMISTRY METHOD 03/04/2025 8:52 AM [facility] CO2 28 21 - 32 mmol/L LAB CHEMISTRY METHOD 03/04/2025 8:52 AM [facility] Anion Gap 6 3 - 11 LAB CHEMISTRY METHOD 03/04/2025 8:52 AM [facility] Glucose 125(H) 70 - 100 mg/dL LAB CHEMISTRY METHOD 03/04/2025 8:52 AM [facility] BUN 13 5 - 25 mg/dL LAB CHEMISTRY METHOD 03/04/2025 8:52 AM [facility] Creatinine 0.86 0.50 - 1.10 mg/dL LAB CHEMISTRY METHOD 03/04/2025 8:52 AM [facility] eGFR 73 >=60 mL/min/1. 73m2 LAB CHEMISTRY METHOD 03/04/2025 8:52 AM [facility] Comment:Calculation based on the Chronic Kidney Disease Epidemiology Collaboration (CKD-EPI) equation refit without adjustment for race. BUN/Creatinine Ratio 15.1 LAB CHEMISTRY METHOD 03/04/2025 8:52 AM [facility] Calcium 8.8 8.5 - 10.5 mg/dL LAB CHEMISTRY METHOD 03/04/2025 8:52 AM [facility] AST (SGOT) 8(L) 10 - 42 unit/L LAB CHEMISTRY METHOD 03/04/2025 8:52 AM [facility] ALT (SGPT) 13 10 - 60 unit/L LAB CHEMISTRY METHOD 03/04/2025 8:52 AM [facility] Alkaline Phosphatase 127(H) 42 - 121 unit/L LAB CHEMISTRY METHOD 03/04/2025 8:52 AM EDT [facility] Total Protein 5.9(L) 6.0 - 8.0 g/dL LAB CHEMISTRY METHOD 03/04/2025 8:52 AM EDT [facility] Albumin 3.2 3.2 - 5.0 g/dL LAB CHEMISTRY METHOD 03/04/2025 8:52 AM EDT [facility] Total Bilirubin 0.5 0.0 - 1.4 mg/dL LAB CHEMISTRY METHOD 03/04/2025 8:52 AM EDT [facility] Blood Venous blood specimen / Unknown Venipuncture / Unknown 03/04/2025 5:56 AM EDT 03/04/2025 6:56 AM EDT Goldie ESPINOZA LAB BLOOD ORDERABLES Final R esult [facility] [address] [place] [address], [place] [phone] * (ABNORMAL) Vitamin D 25 hydroxy (02/27/2025 5:35 AM EDT) Vit D, 25-Hydroxy 11.9(L) 30.0 - 80.0 ng/mL LAB CHEMISTRY METHOD 02/27/2025 8:47 AM EDT [facility] Blood Venous blood specimen / Unknown Venipuncture / Unknown 02/27/2025 5:35 AM EDT 02/27/2025 6:54 AM EDT Nataliya Jones NP LAB BLOOD ORDERABLES Final Result Performing Organization Address [facility]/ZIP Co de Phone Number [facility] [address] [place] [address], [place] [phone] * ECG-Annotated (02/27/2025) us Provider Onbase MD ECG ORDERABLES Final Result * Thyroid stimulating hormone with reflex to free t4 and free t3 (02/26/2025 12:13 PM EDT) [facility] TSH 1.09 0.40 - 4.00 mcIU/mL LAB CHEMISTRY METHOD 02/26/2025 1:19 PM EDT [facility] Blood Venous blood specimen / Unknown Venipuncture / Unknown 02/26/2025 12:13 PM EDT 02/26/2025 12:30 PM EDT Nataliya Jones NP LAB BLOOD ORDERABLES Final Result Performing Organization Address [facility]/ZIP Co de Phone Number [facility] [address] [place] [address], * Lavender tube (02/26/2025 12:13 PM EDT) [facility] Extra Tube Hold for add-ons. 02/26/2025 2:01 PM EDT [facility] Comment:Auto resulted. Blood Venous blood specimen / Unknown 02/26/2025 12:13 PM EDT 02/26/2025 12:32 PM EDT Lanny Scott DO LAB BLOOD ORDERABLES Amelia l Result Performing Organization Address City/[facility]/ZIP Co de Phone Number [facility] [address] [place] [address], [place] [phone] * (ABNORMAL) CBC auto differential (02/26/2025 6:07 AM EDT) Only the most recent of3 resultswithin the time period is included. [facility] WBC 6.2 4.8 - 10.8 K/[facility] LAB HEMETOLOGY METHOD 02/26/2025 7:09 AM EDT [facility] RBC 3.70(L) 3.80 - 4.80 M/mcL LAB HEMETOLOGY METHOD 02/26/2025 7:09 AM [facility] Hemoglobin 10.2(L) 11.5 - 16.0 g/dL LAB HEMETOLOGY METHOD 02/26/2025 7:09 AM [facility] Hematocrit 34.1(L) 35.0 - 47.0 % LAB HEMETOLOGY METHOD 02/26/2025 7:09 AM [facility] MCV 92.4 79.0 - 98.0 FL LAB HEMETOLOGY METHOD 02/26/2025 7:09 AM [facility] MCH 27.6 27.0 - 32.0 pcg LAB HEMETOLOGY METHOD 02/26/2025 7:09 AM [facility] MCHC 29.9(L) 32.0 - 37.0 g/dL LAB HEMETOLOGY METHOD 02/26/2025 7:09 AM [facility] RDW 13.7 11.0 - 15.0 % LAB HEMETOLOGY METHOD 02/26/2025 7:09 AM [facility] Platelets 179 130 - 400 K/mcL LAB HEMETOLOGY METHOD 02/26/2025 7:09 AM [facility] MPV 10.5 7.0 - 11.0 FL LAB HEMETOLOGY METHOD 02/26/2025 7:09 AM [facility] NRBC 0.0 <1.0 % LAB HEMETOLOGY METHOD 02/26/2025 7:09 AM [facility] NRBC Absolute 0.00 <0.10 K/mcL LAB HEMETOLOGY METHOD 02/26/2025 7:09 AM [facility] Neutrophils Relative 66.7 % LAB HEMETOLOGY METHOD 02/26/2025 7:09 AM [facility] Lymphocytes Relative 24.4 % LAB HEMETOLOGY METHOD 02/26/2025 7:09 AM [facility] Monocytes Relative 6.3 % LAB HEMETOLOGY METHOD 02/26/2025 7:09 AM [facility] Eosinophils Relative 2.1 % LAB HEMETOLOGY METHOD 02/26/2025 7:09 AM [facility] Basophils Relative 0.3 % LAB HEMETOLOGY METHOD 02/26/2025 7:09 AM [facility] Immature Granulocytes Relative 0.2 % LAB HEMETOLOGY METHOD 02/26/2025 7:09 AM [facility] Neutrophils Absolute 4.16 1.50 - 7.00 K/mcL LAB HEMETOLOGY METHOD 02/26/2025 7:09 AM [facility] Lymphocytes Absolute 1.52 1.00 - 5.00 K/mcL LAB HEMETOLOGY METHOD 02/26/2025 7:09 AM [facility] Monocytes Absolute 0.39 0.20 - 1.00 K/mcL LAB HEMETOLOGY METHOD 02/26/2025 7:09 AM [facility] Eosinophils Absolute 0.13 0.00 - 0.50 K/mcL LAB HEMETOLOGY METHOD 02/26/2025 7:09 AM [facility] Basophils Absolute 0.02 0.00 - 0.20 K/mcL LAB HEMETOLOGY METHOD 02/26/2025 7:09 AM [facility] Immature Granulocytes Absolute 0.01 0.00 - 0.03 K/mcL LAB HEMETOLOGY METHOD 02/26/2025 7:09 AM [facility] Blood Venous blood specimen / Unknown Venipuncture / Unknown 02/26/2025 6:07 AM EDT 02/26/2025 6:51 AM EDT Jennifer ESPINOZA LAB BLOOD ORDERABLES Final Re sult Performing Organization Address City/[facility]/ZIP Co de Phone Number [facility] [address] [place] [address], [place] [phone] * Phosphorus (02/25/2025 5:42 AM EDT) Only the most recent of2 resultswithin the time period is included. [facility] Phosphorus 3.6 2.5 - 4.5 mg/dL LAB CHEMISTRY METHOD 02/25/2025 7:25 AM EDT [facility] Blood Venous blood specimen / Unknown Venipuncture / Unknown 02/25/2025 5:42 AM EDT 02/25/2025 6:19 AM EDT Zaire Turcios MD LAB BLOOD ORDERABLE S Final Result Performing Organization Address [facility]/ZIP Co de Phone Number [facility] [address] [place] [address], [place] [phone] * (ABNORMAL) Urinalysis with reflex microscopic and culture (02/23/2025 3:46 AM EDT) [facility] Specific [place] Urine 1.019 1.003 - 1.030 LAB URINALYSIS - AUTOMATED METHOD 02/23/2025 4:15 AM EDT [facility] pH, Urine 5.5 5.0 - 8.0 pH LAB URINALYSIS - AUTOMATED METHOD 02/23/2025 4:15 AM EDT [facility] Leukocytes, Urine Moderate(A) Negative LAB URINALYSIS - AUTOMATED METHOD 02/23/2025 4:15 AM EDT [facility] Nitrite, Urine Positive(A) Negative LAB URINALYSIS - AUTOMATED METHOD 02/23/2025 4:15 AM EDT [facility] Protein, Urine Negative <=Trace mg/dL LAB URINALYSIS - AUTOMATED METHOD 02/23/2025 4:15 AM EDT [facility] Glucose, Urine Negative Negative mg/dL LAB URINALYSIS - AUTOMATED METHOD 02/23/2025 4:15 AM [facility] Ketones, Urine Negative Negative mg/dL LAB URINALYSIS - AUTOMATED METHOD 02/23/2025 4:15 AM [facility] Urobilinogen , Urine 0.2 0.2 - 1.0 mg/dL LAB URINALYSIS - AUTOMATED METHOD 02/23/2025 4:15 AM [facility] Bilirubin, Urine Negative Negative LAB URINALYSIS - AUTOMATED METHOD 02/23/2025 4:15 AM [facility] Blood, Urine Negative Negative LAB URINALYSIS - AUTOMATED METHOD 02/23/2025 4:15 AM [facility] RBC, Urine 1.9 0 - 4 /HPF LAB URINALYSIS - AUTOMATED METHOD 02/23/2025 4:15 AM [facility] WBC, Urine 19.3(H) 0 - 4 /HPF LAB URINALYSIS - AUTOMATED METHOD 02/23/2025 4:15 AM [facility] Squamous Epithelial, Urine 15 0 - 60 /LPF LAB URINALYSIS - AUTOMATED METHOD 02/23/2025 4:15 AM [facility] Bacteria, Urine Many(A) Negative /HPF LAB URINALYSIS - AUTOMATED METHOD 02/23/2025 4:15 AM [facility] Hyaline Casts, Urine 0.4 0 - 3 /LPF LAB URINALYSIS - AUTOMATED METHOD 02/23/2025 4:15 AM [facility] Urine Urine specimen obtained by clean catch procedure / Unknown Non-blood Collection / Unknown 02/23/2025 3:46 AM EDT 02/23/2025 4:08 AM EDT us Ruthie ESPINOZA LAB URINE ORDERABLES Final Res ult [facility] [address] [place] [address], [place] [phone] * Mcdaniel urine culture tube (02/23/2025 3:46 AM EDT) Extra Tube Hold for add-ons. 02/23/2025 6:01 AM EDT [facility] Comment:Auto resulted. Urine Urine specimen obtained by clean catch procedure / Unknown Non-blood Collection / Unknown 02/23/2025 3:46 AM EDT 02/23/2025 4:08 AM EDT us Ruthie ESPINOZA LAB URINE ORDERABLES Final Res ult [facility] [address] [place] [address], [place] [phone] * (ABNORMAL) Culture urine (02/23/2025 3:46 AM EDT) Culture, Urine >100,000 CFU/mL Klebsiella pneumoniae ssp pneumoniae(A) NASRIN 02/26/2025 8:26 AM EDT [facility] Comment: This is an edited result. Previous organism was Gram negative bacilli on 02/24/2025 at 1013 EDT. Urine Urine specimen obtained by clean catch procedure / Unknown Non-blood Collection / Unknown 02/23/2025 3:46 AM EDT 02/23/2025 4:15 AM EDT Narrative Organism Antibiotic Method Susceptibility Klebsiella pneumoniae ssp pneumoniae Amoxicillin/Clavulanate NASRIN <=2 ug/ml: Susceptible Klebsiella pneumoniae ssp pneumoniae Ampicillin/Sulbactam NASRIN 4 ug/ml: Susceptible Klebsiella pneumoniae ssp pneumoniae Piperacillin/Tazobactam NASRIN <=4 ug/ml: Susceptible Klebsiella pneumoniae ssp pneumoniae Cefazolin (Urine) NASRIN 2 ug/ml: Susceptible Klebsiella pneumoniae ssp pneumoniae Cefoxitin NASRIN <=4 ug/ml: Susceptible Klebsiella pneumoniae ssp pneumoniae Ceftazidime NASRIN <=0.5 ug/ml: Susceptible Klebsiella pneumoniae ssp pneumoniae Ceftriaxone NASRIN <=0.25 ug/ml: Susceptible Klebsiella pneumoniae ssp pneumoniae Cefepime NASRIN <=0.12 ug/ml: Susceptible Klebsiella pneumoniae ssp pneumoniae Meropenem NASRIN <=0.25 ug/ml: Susceptible Klebsiella pneumoniae ssp pneumoniae Amikacin NASRIN <=1 ug/ml: Susceptible Klebsiella pneumoniae ssp pneumoniae Gentamicin NASRIN <=1 ug/ml: Susceptible Klebsiella pneumoniae ssp pneumoniae Ciprofloxacin NASRIN <=0.06 ug/ml: Susceptible Klebsiella pneumoniae ssp pneumoniae Levofloxacin NASRIN <=0.12 ug/ml: Susceptible Klebsiella pneumoniae ssp pneumoniae Nitrofurantoin NASRIN 64 ug/ml: Intermediate Klebsiella pneumoniae ssp pneumoniae Trimethoprim/Sulfamethoxazo le NASRIN <=20 ug/ml: Susceptible us Ruthie ESPINOZA LAB MICROBIOLOGY - GENERAL ORD ERABLES Final Result [facility] [address] [place] [address], [place] [phone] * CT Abdomen Pelvis w Contrast (02/22/2025 5:45 PM EDT) Anatomical Region Laterality Modality Body Computed Tomogra phy 02/22/2025 6:35 PM EDT Addenda Addendum by Amanuel Mathur MD on 02/22/2025 6:35 PM EDT ADDENDUM: 5.6 cm probable cyst left adnexa correlate with pelvic ultrasound in a postmenopausal female This document has been electronically signed by: Amanuel Mathur MD on 02/22/2025 18:35:51 Impressions 02/22/2025 6:35 PM EDT Impression: 1. Cardiomegaly. Calcified coronary artery disease better subtle atelectasis versus infiltrates. 2. Borderline gallbladder hydrops. Dependent gallstones. No biliary dilatation. Atrophic pancreas. 3. No renal parenchymal disease or evidence of obstructive uropathy. Diverticulosis coli. 4. No acute osseous abnormalities. This document has been electronically signed by: Amanuel Mathur MD on 02/22/2025 18:35:02 Narrative 02/22/2025 6:35 PM EDT INDICATION: N/V/D, L upper and lower abd pain, recent trauma to L flank CT abdomen and pelvis with IV contrast Comparison: None Findings: Basilar atelectasis versus infiltrates. No dependent layering pleural effusions. Cardiomegaly. Coronary artery calcifications: Moderate. Liver normal size and contour. No focal hepatic lesions. Patent hepatic and portal veins. Borderline gallbladder hydrops. Dependent gallstone.Atrophic pancreas. No splenomegaly. Normal adrenal glands. Symmetrical renal excretion with no segmental or diffuse renal parenchymal disease or evidence of obstructive uropathy/hydroureteronephrosis. Normal caliber abdominal aorta. Bowel demonstrates a nonobstructive pattern. No free air. Normal appendix and terminal ileum. Diverticulosis coli without CT evidence of acute diverticulitis. No intraperitoneal, retroperitoneal, pelvic or inguinal masses lymphadenopathy or abnormal fluid collections. Left adnexal cyst measuring 5.6 cm follow-up with ultrasound in a postmenopausal female. Normal CT appearance right ovary. Normal distention of the urinary bladder. Moderate size fat containing umbilical hernia without evidence of omental infarction. No acute compression fractures. Multilevel degenerative spondylosis with vacuum disc phenomenon lower thoracic and lumbar vertebra. Subtle degenerative spondylolisthesis L4-5. No pelvic fractures. Femoroacetabular joints remain congruent. Procedure Note Amanuel Mathur MD - 02/22/2025 INDICATION: N/V/D, L upper and lower abd pain, recent trauma to L flank CT abdomen and pelvis with IV contrast Comparison: None Findings: Basilar atelectasis versus infiltrates. No dependent layering pleural effusions. Cardiomegaly. Coronary artery calcifications: Moderate. Liver normal size and contour. No focal hepatic lesions. Patent hepatic and portal veins. Borderline gallbladder hydrops. Dependent gallstone.Atrophic pancreas. No splenomegaly. Normal adrenal glands. Symmetrical renal excretion with no segmental or diffuse renal parenchymal disease or evidence of obstructive uropathy/hydroureteronephrosis. Normal caliber abdominal aorta. Bowel demonstrates a nonobstructive pattern. No free air. Normalappendix and terminal ileum. Diverticulosis coli without CT evidence of acute diverticulitis. No intraperitoneal, retroperitoneal, pelvic or inguinal masses lymphadenopathy or abnormal fluid collections. Left adnexal cyst measuring 5.6 cm follow-up with ultrasound in a postmenopausal female. Normal CT appearance right ovary. Normal distention of the urinary bladder. Moderate size fat containing umbilical hernia without evidenceof omental infarction. No acute compression fractures. Multilevel degenerative spondylosis with vacuum disc phenomenon lower thoracic and lumbar vertebra. Subtle degenerative spondylolisthesis L4-5. No pelvic fractures.Femoroacetabular joints remain congruent. IMPRESSION: Impression: 1. Cardiomegaly. Calcified coronary artery disease better subtle atelectasis versus infiltrates. 2. Borderline gallbladder hydrops. Dependent gallstones. No biliary dilatation. Atrophic pancreas. 3. No renal parenchymal disease or evidence of obstructive uropathy. Diverticulosis coli. 4. No acute osseous abnormalities. This document has been electronically signed by: Amanuel Mathur MD on 02/22/2025 18:35:[address] PROCEDURES Edited Resul t - Final * CT Cervical Spine wo Contrast (02/22/2025 5:45 PM EDT) Anatomical Region Laterality Modality Spine, C-spine Computed Tomogra phy 02/22/2025 6:19 PM EDT Impressions 02/22/2025 6:19 PM EDT Impression: 1. Negative CT cervical spine for acute process. This document has been electronically signed by: Amanuel Mathur MD on 02/22/2025 18:19:12 Narrative 02/22/2025 6:19 PM EDT INDICATION: fall CT cervical spine without intravenous contrast Comparison: None Findings: Craniocervical junction: No occipital condylar fractures. No evidence of atlanto-occipital dissociation. The anterior and posterior arch and lateral masses of C1 are intact. Odontoid and atlanto-dental interval intact. The pars interarticularis of C2 is intact. There is normal vertebral body heights with no evidence of compression fracture. There is normal cervical alignment. No locked or perched facets. No spinous process fractures. Lordotic curvature is preserved. The retropharyngeal soft tissues are not widened. Segmental analysis as below (MR is more accurate in the evaluation of disc herniation and central canal pathology): C2-C3: Uncovertebral body spurs and degenerative facet hypertrophy more so on the left. C3-C4: Uncovertebral body spurs and degenerative facet hypertrophy more so on the right. C4-C5: Mild degenerative facet hypertrophy. C5-C6: Uncovertebral body spurs and degenerative facet hypertrophy. C6-C7: Uncovertebral body spurs. C7-T1: Degenerative facet hypertrophy. The bones are without evidence of lytic or blastic lesion. Lung apices are unremarkable. Procedure Note Amanuel Mathur MD - 02/22/2025 INDICATION: fall CT cervical spine without intravenous contrast Comparison: None Findings: Craniocervical junction: No occipital condylar fractures. No evidence of atlanto-occipital dissociation. The anterior and posterior arch and lateral masses of C1 are intact. Odontoid and atlanto-dental interval intact. The pars interarticularis of C2 is intact. There is normal vertebral body heights with no evidence of compression fracture. There is normal cervical alignment. No locked or perchedfacets. No spinous process fractures. Lordotic curvature is preserved. The retropharyngeal soft tissues arenot widened. Segmental analysis as below (MR is more accurate in the evaluation ofdisc herniation and central canal pathology): C2-C3: Uncovertebral body spurs and degenerative facet hypertrophy moreso on the left. C3-C4: Uncovertebral body spurs and degenerative facet hypertrophy moreso on the right. C4-C5: Mild degenerative facet hypertrophy. C5-C6: Uncovertebral body spurs and degenerative facet hypertrophy. C6-C7: Uncovertebral body spurs. C7-T1: Degenerative facet hypertrophy. The bones are without evidence of lytic or blastic lesion. Lung apicesare unremarkable. IMPRESSION: Impression: 1. Negative CT cervical spine for acute process. This document has been electronically signed by: Amanuel Mathur MD on 02/22/2025 18:19:12 Ruthie [place] [facility] [place]ED[place] Final Result * CT Angio Chest wo and/or w Contrast (02/22/2025 5:45 PM EDT) Anatomical Region Laterality Modality Body Computed Tomogra phy 02/22/2025 7:11 PM EDT Impressions 02/22/2025 7:11 PM EDT Impression: 1. No CT evidence of pulmonary embolus. 2. Ascending thoracic aortic aneurysm. 3. Bibasilar atelectasis. No pneumothorax or pleural effusions. 4. No vertebral body compression fractures. Sternum is intact. No rib fractures were demonstrated. This document has been electronically signed by: Amanuel Mathur MD on 02/22/2025 19:11:43 Narrative 02/22/2025 7:11 PM EDT INDICATION: SOB hx PE, also recent L rib trauma CT angiography chest using contrast. 3-D postprocessing Comparison: None Findings: There is good opacification of the main, right and left pulmonary arteries. No CT evidence of pulmonary embolism. Ascending thoracic aortic aneurysm at 4.4 cm. Moderate calcified coronary artery disease. Trace pericardial effusion. Cardiomegaly. No evidence of mediastinal hematoma. Shotty mediastinal lymph nodes. No lymphadenopathy. Lung maria are normally expanded. Basilar atelectasis. No pneumothorax, pleural effusions, pleural plaques or calcifications. No thyroid nodules demonstrated. No chest wall masses.No axillary adenopathy. No abnormalities are noted in the upper portions of the abdomen. No bony destructive processes demonstrated. Procedure Note Amanuel Mathur MD - 02/22/2025 INDICATION: SOB hx PE, also recent L rib trauma CT angiography chest using contrast. 3-D postprocessing Comparison: None Findings: There is good opacification of the main, right and left pulmonaryarteries. No CT evidence of pulmonary embolism. Ascending thoracic aortic aneurysm at 4.4 cm. Moderate calcifiedcoronary artery disease. Trace pericardial effusion. Cardiomegaly. No evidence of mediastinal hematoma. Shotty mediastinal lymph nodes. No lymphadenopathy. Lung maria are normally expanded. Basilar atelectasis. No pneumothorax, pleural effusions, pleural plaques or calcifications. No thyroid nodules demonstrated. No chest wall masses.No axillary adenopathy. No abnormalities are noted in the upper portions of the abdomen. No bony destructive processes demonstrated. IMPRESSION: Impression: 1. No CT evidence of pulmonary embolus. 2. Ascending thoracic aortic aneurysm. 3. Bibasilar atelectasis. No pneumothorax or pleural effusions. 4. No vertebral body compression fractures. Sternum is intact. No rib fractures were demonstrated. This document has been electronically signed by: Amanuel Mathur MD on 02/22/2025 19:11:[address] PROCEDURES Final Result * CT Head wo Contrast (02/22/2025 5:45 PM EDT) Anatomical Region Laterality Modality Head and Neck Computed Tomogra phy 02/22/2025 6:20 PM EDT Impressions 02/22/2025 6:20 PM EDT Impression: 1. No CT evidence of acute intracranial abnormality. 2. Cerebral volume loss, intracranial atherosclerotic disease and mild sequela of chronic small vessel ischemic disease. This document has been electronically signed by: Amanuel Mathur MD on 02/22/2025 18:20:29 Narrative 02/22/2025 6:20 PM EDT INDICATION: fall +headstrike 2 days ago, weakness, N/V CT of the head without intravenous contrast Comparison: None Findings: The ventricles and sulci are prominent, consistent with generalized cerebral parenchymal volume loss. The ventricles are symmetric and the basilar cisterns are intact. Mild periventricular, deep and subcortical white matter hypodensities are nonspecific but statistically reflect the sequela of chronic small vessel ischemic change. No intracranial hemorrhage, extra-axial fluid collection, midline shift or mass-effect is evident. No evidence of acute large vessel or territorial ischemia. Brainstem and cerebellum unremarkable. Vascular calcifications indicate intracranial atherosclerosis. The imaged portion of the paranasal sinuses are clear. No mastoid effusions are demonstrated. The orbital contents are unremarkable. Calvarium is intact. Procedure Note Amanuel Mathur MD - 02/22/2025 INDICATION: fall +headstrike 2 days ago, weakness, N/V CT of the head without intravenous contrast Comparison: None Findings: The ventricles and sulci are prominent, consistent with generalized cerebral parenchymal volume loss. The ventricles are symmetric and the basilar cisterns are intact. Mild periventricular, deep and subcortical white matter hypodensities are nonspecific but statistically reflect the sequela of chronic small vessel ischemic change. No intracranial hemorrhage, extra-axial fluid collection, midline shift or mass-effectis evident. No evidence of acute large vessel or territorial ischemia. Brainstem and cerebellum unremarkable. Vascular calcifications indicate intracranial atherosclerosis. The imaged portion of the paranasal sinuses are clear. No mastoid effusions are demonstrated. The orbital contents are unremarkable. Calvarium is intact. IMPRESSION: Impression: 1. No CT evidence of acute intracranial abnormality. 2. Cerebral volume loss, intracranial atherosclerotic disease and mild sequela of chronic small vessel ischemic disease. This document has been electronically signed by: Amanuel Mathur MD on 02/22/2025 18:20:29 us Ruthie ESPINOZA IMG CT PROCEDURES Final Result * Troponin I high sensitivity (02/22/2025 4:47 PM EDT) Only the most recent of2 resultswithin the time period is included. High Sensitivity Troponin I 7 <=54 ng/L LAB CHEMISTRY METHOD 02/22/2025 5:26 PM EDT [facility] Blood Venous blood specimen / Unknown Venipuncture / Unknown 02/22/2025 4:47 PM EDT 02/22/2025 4:56 PM EDT Narrative [facility] - 02/22/2025 5:26 PM EDT High levels of biotin in samples may falsely decrease hsTroponin values. Use caution when interpreting hsTroponin results in patients taking biotin who exhibit renal impairment (eGFR <60) or in patients taking more than 20 mg/day of biotin. us Ruthie ESPINOZA LAB BLOOD ORDERABLES Final Res ult [facility] [address] [place] [address], [place] [phone] * XR Chest 1 View (02/22/2025 3:44 PM EDT) Anatomical Region Laterality Modality Body Radiographic Aliya ging 02/22/2025 4:30 PM EDT Impressions 02/22/2025 4:32 PM EDT FINDINGS/IMPRESSION: Limited rotated hypoventilatory examination with crowding of bronchovascular structures and atelectasis at the left lung base. No consolidation or effusion. No congestive heart failure. Degenerative changes of the bones. Gaseous distention of the splenic flexure. -------- FINAL REPORT -------- Dictated By: Jesus Fuentes Dictated Date: 02/22/2025 16:30 ET Assigned Physician: Jesus Fuentes Reviewed and Electronically Signed By: Jesus Fuentes Signed Date: 02/22/2025 16:32 ET Workstation ID: [id number] Transcribed By: Self Edit Transcribed Date: 02/22/2025 16:30 ET Narrative 02/22/2025 4:32 PM EDT XR CHEST 1 VIEW INDICATION: dyspnea TECHNIQUE: XR CHEST 1 VIEW COMPARISON: No priors available. Procedure Note Jesus Fuentes MD - 02/22/2025 XR CHEST 1 VIEW INDICATION: dyspnea TECHNIQUE: XR CHEST 1 VIEW COMPARISON: No priors available. IMPRESSION: FINDINGS/IMPRESSION: Limited rotated hypoventilatory examination withcrowding of bronchovascular structures and atelectasis at the left lungbase. No consolidation or effusion. No congestive heart failure.Degenerative changes of the bones. Gaseous distention of the splenicflexure. -------- FINAL REPORT -------- Dictated By: Jesus Fuentes Dictated Date: 02/22/2025 16:30 ET Assigned Physician: Jesus Fuentes Reviewed and Electronically Signed By: Jesus Fuentes Signed Date: 02/22/2025 16:32 ET Workstation ID: [id number] Transcribed By: Self Edit Transcribed Date: 02/22/2025 16:30 ET us Ruthie ESPINOZA IMG XR PROCEDURES Final Result * APTT (02/22/2025 3:26 PM EDT) aPTT 33.4 24.1 - 39.3 sec LAB COAGULATION METHOD 02/22/2025 4:33 PM EDT [facility] Blood Venous blood specimen / Unknown Venipuncture / Unknown 02/22/2025 3:26 PM EDT 02/22/2025 4:16 PM EDT us Ruthie ESPINOZA LAB BLOOD ORDERABLES Final Res ult [facility] [address] [place] [address], [place] [phone] * (ABNORMAL) Prothrombin time with INR (02/22/2025 3:26 PM EDT) [facility] Protime 20.2(H) 10.6 - 13.9 sec LAB COAGULATION METHOD 02/22/2025 4:33 PM EDT [facility] INR 1.6 LAB COAGULATION METHOD 02/22/2025 4:33 PM EDT [facility] Blood Venous blood specimen / Unknown Venipuncture / Unknown 02/22/2025 3:26 PM EDT 02/22/2025 4:16 PM EDT [facility] Francie MD LAB BLOOD ORDERABLES Final Res ult Performing Organization Address [facility]/ZIP Co de Phone Number [facility] [address] [place] [address], [place] [phone] * (ABNORMAL) B-type natriuretic peptide (02/22/2025 3:26 PM EDT) [facility] BNP 157(H) <=100 pcg/mL LAB CHEMISTRY METHOD 02/22/2025 4:58 PM EDT [facility] Blood Venous blood specimen / Unknown Venipuncture / Unknown 02/22/2025 3:26 PM EDT 02/22/2025 4:16 PM EDT [facility] LAB BLOOD ORDERABLES Final Res ult [facility] [address] [place] [address], [place] [phone] * Respiratory virus panel molecular study (02/22/2025 3:25 PM EDT) [facility] Adenovirus Detection by PCR Not Detected Not Detected LAB MICROBIOLOGY METHOD 02/22/2025 5:16 PM EDT [facility] Influenza A PCR Not Detected Not Detected LAB MICROBIOLOGY METHOD 02/22/2025 5:16 PM EDT [facility] Influenza B PCR Not Detected Not Detected LAB MICROBIOLOGY METHOD 02/22/2025 5:16 PM EDT [facility] Coronavirus 229E Not Detected Not Detected LAB MICROBIOLOGY METHOD 02/22/2025 5:16 PM EDT [facility] Coronavirus HKU1 Not Detected Not Detected LAB MICROBIOLOGY METHOD 02/22/2025 5:16 PM EDT [facility] Coronavirus OC43 Not Detected Not Detected LAB MICROBIOLOGY METHOD 02/22/2025 5:16 PM EDT [facility] Coronavirus NL63 Not Detected Not Detected LAB MICROBIOLOGY METHOD 02/22/2025 5:16 PM EDT [facility] Parainfluenza Virus 1 Not Detected Not Detected LAB MICROBIOLOGY METHOD 02/22/2025 5:16 PM EDT [facility] Parainfluenza Virus 2 Not Detected Not Detected LAB MICROBIOLOGY METHOD 02/22/2025 5:16 PM EDT [facility] Parainfluenza Virus 3 Not Detected Not Detected LAB MICROBIOLOGY METHOD 02/22/2025 5:16 PM EDT [facility] Parainfluenza Virus 4 Not Detected Not Detected LAB MICROBIOLOGY METHOD 02/22/2025 5:16 PM EDT [facility] RSV PCR Not Detected Not Detected LAB MICROBIOLOGY METHOD 02/22/2025 5:16 PM EDT [facility] Human Metapneumovirus A and B Not Detected Not Detected LAB MICROBIOLOGY METHOD 02/22/2025 5:16 PM EDT [facility] Rhinovirus/Entero virus Not Detected Not Detected LAB MICROBIOLOGY METHOD 02/22/2025 5:16 PM EDT [facility] Bordetella pertussis Not Detected Not Detected LAB MICROBIOLOGY METHOD 02/22/2025 5:16 PM EDT [facility] Bordetella parapertussis Not Detected Not Detected LAB MICROBIOLOGY METHOD 02/22/2025 5:16 PM EDT [facility] Mycoplasma pneumo by PCR Not Detected Not Detected LAB MICROBIOLOGY METHOD 02/22/2025 5:16 PM EDT [facility] Chlamydia pneumoniae Not Detected Not Detected LAB MICROBIOLOGY METHOD 02/22/2025 5:16 PM EDT [facility] SARS COV-2 Not Detected Not Detected LAB MICROBIOLOGY METHOD 02/22/2025 5:16 PM EDT [facility] Swab Both anterior nares / Unknown Non-blood Collection / Unknown 02/22/2025 3:25 PM EDT 02/22/2025 4:13 PM EDT [facility] - 02/22/2025 5:16 PM EDT Testing was performed using the [employer] Respiratory Pathogen PCR Assay. All results must be correlated with the clinical findings. Results should not be used as the sole basis for diagnosis. False Negative results may occur from the presence of sequence variants in the region targeted by the assay or the presence of inhibitors. Results may be affected by concurrent antiviral/antimicrobial therapy or levels of organisms that are below the limit of detection. us Ruthie ESPINOZA LAB MICROBIOLOGY - GENERAL ORD ERABLES Final Result [facility] [address] [place] [address], * ECG 12 lead (02/22/2025 3:07 PM EDT) Ventricular Rate ECG 136 BPM GEMUSE Atrial Rate 125 BPM GEMUSE QRS Duration 136 ms GEMUSE Q-T Interval 354 ms GEMUSE QTc 532 ms GEMUSE R [place] 85 degrees GEMUSE T [place] -41 degrees GEMUSE ECG Interpretation Atrial fibrillation with rapid ventricular response Right bundle branch block T wave abnormality, consider inferior ischemia Abnormal ECG When compared with ECG of 01-NOV-2015 22:57, Vent. rate has increased BY 56 BPM Right bundle branch block is now Present Confirmed by MD Salvador, Gold ([id number]) on 02/23/2025 8:12:24 PM GEMUSE 02/22/2025 3:07 PM EDT 02/23/2025 8:12 PM EDT us Ruthie ESPINOZA ECG ORDERABLES Final Result [place] * (ABNORMAL) Lipid panel with reflex to direct LDL (02/03/2025 3:57 PM EDT) Cholesterol 113 0 - 200 mg/dL LAB CHEMISTRY METHOD 02/03/2025 6:56 PM EDT [facility] Triglycerides 106 0 - 150 mg/dL LAB CHEMISTRY METHOD 02/03/2025 6:56 PM EDT [facility] HDL 35(L) >=40 mg/dL LAB CHEMISTRY METHOD 02/03/2025 6:56 PM EDT [facility] LDL Calculated 57 0 - 100 mg/dL LAB CHEMISTRY METHOD 02/03/2025 6:56 PM EDT [facility] VLDL Cholesterol Landry 21.2 mg/dL LAB CHEMISTRY METHOD 02/03/2025 6:56 PM EDT [facility] Non HDL Chol. (LDL+VLDL) 78 <145 mg/dL LAB CHEMISTRY METHOD 02/03/2025 6:56 PM EDT [facility] Chol/HDL Ratio 3.2 0.0 - 4.4 LAB CHEMISTRY METHOD 02/03/2025 6:56 PM EDT [facility] Blood Venous blood specimen / Unknown Venipuncture / Unknown 02/03/2025 3:57 PM EDT 02/03/2025 3:57 PM EDT us Oscar Goyal MD LAB BLOOD ORDERABLES Final Resu lt [facility] [address] [place] [address], [place] [phone] * Microalbumin creatinine urine ratio (02/03/2025 3:57 PM EDT) Creatinine, Urine 96.0 mg/dL LAB CHEMISTRY METHOD 02/03/2025 7:14 PM EDT [facility] Microalb, Ur 15.7 0.0 - 29.0 mg/L LAB CHEMISTRY METHOD 02/03/2025 7:14 PM EDT [facility] Microalb/Creat Ratio 16 <30 mg/g creat LAB CHEMISTRY METHOD 02/03/2025 7:14 PM EDT [facility] Urine Urine specimen obtained by clean catch procedure / Unknown Non-blood Collection / Unknown 02/03/2025 3:57 PM EDT 02/03/2025 3:57 PM EDT us Dorothy Goldberg NP LAB URINE ORDERABLES Final Resul t Performing Organization Address [facility] de Phone Number [facility] [address] [place] [address], [place] [phone] * (ABNORMAL) Hemoglobin A1c (02/03/2025 3:57 PM EDT) Hemoglobin A1C 6.8(H) <6.5 % LAB CHEMISTRY METHOD 02/03/2025 7:56 PM EDT [facility] Mean Bld Glu Estim. 148 mg/dL LAB CHEMISTRY METHOD 02/03/2025 7:56 PM EDT [facility] Blood Venous blood specimen / Unknown Venipuncture / Unknown 02/03/2025 3:57 PM EDT 02/03/2025 3:57 PM EDT us Dorothy Goldberg NP LAB BLOOD ORDERABLES Final Resul t Performing Organization Address [facility]/ZIP Co de Phone Number [facility] [address] [place] [address], [place] [phone] * External Diabetic Retina Eye Exam Report (01/13/2025) Anatomical Region Laterality Modality Ultrasound us Provider [facility] US PROCEDURES Final Result * Depression Screening (09/16/2023) Depression Screening abstracted Historical Provider HEALTH MAINTENANCE Final Result * Hepatitis C Screening (12/30/2012) Hepatitis C Screening abstracted us Historical Provider HEALTH MAINTENANCE Final Result from Last 3 Months or Most Recently Relevant to Health Maintenance Insurance MEDICARE [facility] [address] [place] [address] Advance Directives Documents on File Type Date Recorded Patient Inner Tube Cutter Expl anation Advance Directives and Living Will 03/04/2025 12:43 PM HEALTH CARE PROXY * Full Code - Default (Latest Code Status on File) Date Activated Date Inactivated Comments 02/25/2025 8:12 PM 03/09/2025 3:47 PM This is order is used when code status has not been discussed with the patient, or code status is otherwise unknown/unconfirmed To update the patient's code status, place a code status order. Do not modify or discontinue any currently active code status orders. * Full Code - Default Date Activated Date Inactivated Comments 02/22/2025 8:41 PM 02/25/2025 4:51 PM This is orde r is used when code status has not been discussed with the patient, or code status is otherwise unknown/unconfirmed To update the patient's code status, place a code status order. Do not modify or discontinue any currently active code status orders. Care Teams Cushion Stuffer Relationship Specialty Start Date End Date Oscar Goyal MD [address] [place] [address] PCP - General Internal Medicine 06/07/21
--- OUTSIDE RECORDS SUMMARY | 2025-05-18 18:20 | XMS_ITS | Encounter Summary ---
Author Organization [facility] [place] [address] Care Team Providers Care Production Operations Engineer Name Role Phone Oscar Goyal MD Primary Care Provider [phone] Encounter Details Date Type Department Care Team (Late st Contact Info) Description 01/13/2025 Referral Triage [facility] [address] [place] [address] Ivonne Cifuentes Social History Tobacco Use Types Packs/Day Years Used Date Smoking Tobacco: Former Smokeless Tobacco: Never Alcohol Use Standard Drinks/Week Comments No 0 (1 standard drink = 0.6 oz pur e alcohol) Housing Instability Answer Date Recorde d Are you worried that in the next 2 months you may not have stable housing? No 10/19/2024 Food Access & Nutrition Answer Date Rec orded Do you have access to a vari ety of food including fruits and vegetables? No 10/19/2024 Access to Healthcare Answer Date Record ed Within the last 3 months, ho tea many times did you visit the emergency department for your medical care? 0 10/19/2024 Health Literacy Answer Date Recorded How often do you need to hav e someone help you when you read instructions, pamphlets, or other written material from your doctor or pharmacy? Rarely 10/19/2024 Caregiver: How often do you need to have someone help you when you read instructions, pamphlets, or other written material from your doctor or pharmacy? Not on file 10/19/2024 Financial Risk Answer Date Recorded How hard is it for you to pa y for the very basics like food, housing, medical care, and air conditioning / heating? Not very hard 10/19/2024 Transportation Answer Date Recorded Has the lack of transportati on kept you from meetings, work, or from getting things needed for daily living? No Has the lack of transportati on kept you from medical appointments or from getting medications? No 10/19/2024 Social Isolation Answer Date Recorded How often do you feel lonely or isolated from those around you? Sometimes 10/19/2024 Food Risk Answer Date Recorded Within the past 12 months we worried whether our food would run out before we got money to buy more. Never true 10/19/2024 Within the past 12 months th e food we bought just didn't last and we didn't have money to get more. Never true 10/19/2024 Dependent Care Answer Date Recorded Do you need help finding or paying for care for your loved ones. For example, early childhood coordinator or elderly care for an older adult? No 10/19/2024 Education Answer Date Recorded Do you think completing more education or training, like finishing a GED, going to college, or learning a trade, would be helpful for you? N/A 10/19/2024 Employment and Income Answer Date Recor ded During the last four weeks, have you been actively looking for work? No 10/19/2024 Living Situation Answer Date Recorded What is your living situation? 0 10/19/2024 Comments Unknown Sex and Gender Information Value Date Recorded Sex Assigned at Female 02/25/2025 11:18 AM EDT Legal Sex Female 3:19 PM EDT Gender Identity Female 02/25/2025 11:18 AM EDT Sexual Orientation Straight 02/25/2025 11 :18 AM EDT documented as of this encounter Plan of Treatment Upcoming Encounters Date Type Department Care Team (Late st Contact Info) Description 05/21/2025 2:00 PM EDT Office Visit [facility] [address] [facility] [address] [place] [phone] Brandan Rodriguez MD [address] [place] [address] [address] [place] [address] 05/24/2025 2:00 PM EDT Office Visit Pulmonolgy - [place] [address] [facility] [address] [place] [phone] Hua Sal MD [address] [facility] [address] [place] [address] 06/16/2025 1:15 PM EDT Office Visit Internal Medicine - [facility] [address] [place] [address] Oscar Goyal MD [address] [place] [address] 07/22/2025 1:00 PM EST Office Visit Orthopedic Surgery - [facility] [address] [facility] [address] [place] [phone] Gold Hernandez DPM [address] [phone] documented as of this encounter Visit Diagnoses Not on filedocumented in this encounter Additional Health Concerns Infection Onset Date Last Indicated Resolved Time Respiratory Rule-Out 02/22/2025 02/22/2025 025 5:16 PM EDT documented as of this encounter Care Teams Production Operations Engineer Relationship Specialty Start Date End Date Oscar Goyal MD [address] [place] [id number] PCP - General Internal Medicine 06/07/21 documented as of this encounter
--- OUTSIDE RECORDS SUMMARY | 2025-05-18 18:20 | XMS_ITS ---
Author Name [facility] Organization Unknown Care Team Organization Name Specialty Phone Email Start Date End Da te [facility]CO 04/21/2025 [facility] 02/08/202304/02 [facility] 07/10/20222023 [facility]
--- OUTSIDE RECORDS SUMMARY | 2025-05-18 18:20 | XMS_ITS ---
Author Organization Patient Business Ser [facility] Address [address] [place] [address] Care Team Providers Care Ticket Collector Or Usher Name Role Phone Oscar Goyal MD Primary Care Provider [phone] [facility] - Transportation Status:Ongoing (Active) Start date:01/14/2025 Enrollment date:01/14/2025 Enrollment reason:Referred by Care Team Related program episode:Community Health Worker Program (Active) Overview Community Health Worker Program - Transportation Service Episode Case Team Name Relationship Phone Ivonne Cifuentes Community Health Worker(Responsi ble Staff) Continued Care and Services Coordination
== END 2025-05-18 15:13 | disposition home or self-care (01) ==
PROVIDERS: PCP Internal Medicine; Visit Provider Registered Nurse
DX: G56.22 Lesion of ulnar nerve, left upper limb (principal); G56.03 Carpal tunnel syndrome, bilateral upper limbs
CPT/HCPCS: 99214

== ENCOUNTER → 2025-05-18 14:38 | Outpatient (BNVA) | payer MEDICARE, OTHER, SELFPAY | PROVIDERS: PCP Internal Medicine; Visit Provider Registered Nurse | DX: G56.22 Lesion of ulnar nerve, left upper limb (principal); G56.03 Carpal tunnel syndrome, bilateral upper limbs | CPT/HCPCS: 99212 ==